=== PATIENT | female | born 1990 | race Caucasian/White ===

== ENCOUNTER 2016-08-24 21:08 | Emergency (ER) | payer OTHER ==
[~2016-08-24 21:08] MED LIST: ALBUTEROL17 GM INH; AMOXICILLIN875 MG PO; ANTIDEPRESSENT; BACTRIM 400-801 TA1 PO; BUSPAR; CIPRO250 M1 PO; FLEXERIL PO; FLOMAX0.4 M1 PO; FLONASE 0.05% N16 G1 INH; IBUPROFEN600 MG PO; IBUPROFEN800 MG PO; KEFLEX PO; MUCINEX D ER T1 EAC1 PO; NAPROSYN PO; NO MEDICATIONS; NORCO1 TAB 10/3 PO; PERCOCET 10/3251 TAB PO; PHENERGAN DM1 ML PO; PREDNISONE PO; PRILOSEC40 MG PO; PYRIDIUM100 MG PO; SUDAFED PO; TRAMADOL HCL50 M1 PO; TYLENOL #3 PO; VOLTAREN75 MG PO; ZOFRAN ODT4 MG PO; ZOFRAN ODT4 MG/UDTAB PO; ZOFRAN ODT4 MG/UDTAB SL; ZOLOFT; ZYRTEC-D TABLE1 EACH PO
[2016-08-24] MEDS ORDERED: PRENATAL ONE T1 EACH PO (21:24)
== END 2016-08-24 22:04 | disposition home or self-care (01) ==
LOC: SED 21:08
DX: S39.011A Strain of muscle, fascia and tendon of abdomen, initial encounter (principal); F17.200 Nicotine dependence, unspecified, uncomplicated; Z87.442 Personal history of urinary calculi; X58.XXXA Exposure to other specified factors, initial encounter; Y92.9 Unspecified place or not applicable
CPT/HCPCS: 99283